=== PATIENT | male | born 1940 | race Caucasian/White ===

== ENCOUNTER 2018-10-28 14:50 | Emergency (ER) | payer OTHER ==
[~2018-10-28] VITALS: Ht 154.9 cm; Wt 50.9 kg
[~2018-10-28 14:50] MED LIST: ALBU8.5H8 IH; MOME13HF2 IH; TAMS0.4C32 PO
[2018-10-28] MEDS ORDERED: ACETAMINOPHEN 500 MG TABLET PO ONE (17:00)
[2018-10-28 17:30] VITALS: BP 129/72
== END 2018-10-28 18:25 | disposition home or self-care (01) ==
LOC: EMS 14:52
DX: T83.098A Other mechanical complication of other urinary catheter, initial encounter (principal); J45.909 Unspecified asthma, uncomplicated; K21.9 Gastro-esophageal reflux disease without esophagitis; F17.210 Nicotine dependence, cigarettes, uncomplicated; F11.90 Opioid use, unspecified, uncomplicated
CPT/HCPCS: 51702

== ENCOUNTER 2018-10-29 17:48 | Emergency (ER) | payer OTHER ==
[~2018-10-29] VITALS: Ht 172.7 cm; Wt 77.3 kg
[2018-10-29 19:32] LABS: APPEARANCE,URINE TURBID (CLEAR); BILIRUBIN,URINE NEGATIVE (NEGATIVE); GLUCOSE, URINE (UA) NEGATIVE (NEGATIVE); KETONES,URINE NEGATIVE (NEGATIVE); LEUKOCYTE ESTERASE ,URINE MODERATE (NEGATIVE); NITRATE,URINE POSITIVE (NEGATIVE); OCCULT BLOOD,URINE LARGE (NEGATIVE); PH,URINE 5.5 (5.0-8.0); PROTEIN,URINE SEE CONFIRM (NEGATIVE)
[2018-10-29 19:45] LABS: SULFOSALICYLIC ACID,URINE 3+ (Negative)
[2018-10-29 19:49] LABS: BACTERIA,URINE Few /HPF (None Seen); SQUAMOUS EPITHELIAL CELL,UR Few /LPF (None Seen); WBC,URINE 51-100 /HPF (0-5)
[2018-10-29 20:39] VITALS: BP 111/66
== END 2018-10-29 20:46 | disposition home or self-care (01) ==
LOC: EMS 17:55
DX: T83.031A Leakage of indwelling urethral catheter, initial encounter (principal); N39.0 Urinary tract infection, site not specified; J45.909 Unspecified asthma, uncomplicated; K21.9 Gastro-esophageal reflux disease without esophagitis; F10.20 Alcohol dependence, uncomplicated; F17.210 Nicotine dependence, cigarettes, uncomplicated; F15.10 Other stimulant abuse, uncomplicated; F11.90 Opioid use, unspecified, uncomplicated; Z79.899 Other long term (current) drug therapy; Y73.2 Prosthetic and other implants, materials and accessory gastroenterology and urology devices associated with adverse incidents
CPT/HCPCS: 51702; 87086

== ENCOUNTER 2019-05-31 22:11 | Inpatient (IN) | payer MEDICAID, OTHER ==
[~2019-05-31] VITALS: Ht 165.1 cm; Wt 51.3 kg
[~2019-05-31 22:11] MED LIST changes: +TAMS-13 PO; -TAMS0.4C32 PO
[2019-05-31] MEDS ORDERED: TAMSULOSIN HCL 0.4 MG CAPSULE PO ONE (23:00)
[2019-05-31 23:24] LABS: BASOPHILS % (AUTO) 0.8 % (0.0-2.0); EOSINOPHILS % (AUTO) 0.9 % (1.0-6.0); HEMATOCRIT 40.9 % (41-53); HEMOGLOBIN 12.5 g/dL (13.5-17.5); LYMPHOCYTES # (AUTO) 2.4 K/uL (1.0-4.8); MEAN CORPUSCULAR HEMOGLOBIN 22.7 pg (26.0-34.0); MEAN CORPUSCULAR HGB CONC 30.6 G/dL (31.0-37.0); MEAN CORPUSCULAR VOLUME 74 fL (80-100); MONOCYTES # (AUTO) 1.6 K/uL (0.1-1.0); MONOCYTES % (AUTO) 9.5 % (2.0-9.0); NEUTROPHILS # (AUTO) 12.7 K/uL (1.8-7.7); NEUTROPHILS % (AUTO) 74.8 % (40.0-70.0); PLATELET COUNT (AUTO) 312 K/uL (150-450); RED BLOOD CELL COUNT(AUTO) 5.52 MIL/uL (4.50-5.90); RED CELL DISTRIBUTION WIDTH 21.4 % (11.5-14.5)
[2019-05-31 23:37] LABS: PROTHROMBIN TIME 10.2 SEC (9.4-11.6)
[2019-05-31 23:50] LABS: ANION GAP 6 mmol/L (8-16); CALCIUM, TOTAL 9.1 mg/dL (8.8-10.5); CARBON DIOXIDE 31 mmol/L (22-29); CHLORIDE 99 mmol/L (98-107); CREATININE 0.77 mg/dL (0.60-1.30); GLOMERULAR FILTR. RATE CALC > 60 mL/min (>60); GLUCOSE,RANDOM 97 mg/dL (70-110); POTASSIUM 5.1 mmol/L (3.5-5.1); SODIUM SERUM 136 mmol/L (136-145); UREA NITROGEN, BLOOD 21 mg/dL (7-18)
[2019-05-31 23:56] LABS: ALANINE AMINOTRANSFERASE 17 U/L (12-78); ALBUMIN 3.1 g/dL (3.4-5.0); ALKALINE PHOSPHATASE 77 U/L (46-116); ASPARTATE AMINOTRANSFERASE 22 U/L (15-37); BILIRUBIN,TOTAL 0.3 mg/dL (0.1-1.0); CREATINE KINASE, TOTAL ONLY 47 U/L (39-308); TOTAL PROTEIN, SERUM 7.1 g/dL (6.4-8.2)
[2019-06-01] MEDS ORDERED: SODIUM CHLORIDE 0.9% 100 ML ONE (00:28)
[2019-06-01] MEDS ORDERED: IOVERSOL 350 MG/ML 100 ML VIAL ONE (00:28)
[2019-06-01] MEDS ORDERED: MethylPREDNISolone SOD SUCC 125 MG/2 ML VIAL IVP ONE ×2 (02:30→07:00)
[2019-06-01] MEDS ORDERED: ALBUTEROL SULFATE 5 MG/ML 20 ML NEB SOLN [BULK] NEB ONE (02:30)
[2019-06-01] MEDS ORDERED: AZITHROMYCIN 500 MG/NS 250 ML IV ONE (02:30)
[2019-06-01] MEDS ORDERED: ACETAMINOPHEN 325 MG TABLET PO PRN ×2 (03:00→11:00)
[2019-06-01] MEDS ORDERED: 0.9% SODIUM CHLORIDE 10 ML SYRINGE IVP PRN ×2 (03:00→07:00)
[2019-06-01] MEDS ORDERED: 0.9% SODIUM CHLORIDE 5 ML NEB SOLUTION NEB ONE (04:05)
[2019-06-01] MEDS: AZITHROMYCIN 500 MG/NS 250 ML IV SCH (07:00)
[2019-06-01] MEDS ORDERED: ZOLPIDEM TARTRATE 5 MG TABLET PO PRN (07:00)
[2019-06-01] MEDS ORDERED: IPRATROPIUM BROMIDE 0.5 MG/2.5 ML NEB SOLUTION NEB PRN (07:00)
[2019-06-01] MEDS ORDERED: ALBUTEROL SULFATE 2.5 MG/0.5 ML NEB SOLUTION NEB PRN (07:00)
[2019-06-01] MEDS ORDERED: ONDANSETRON HCL 4 MG/2 ML VIAL IVP PRN (07:00)
[2019-06-01] MEDS: ALBUTEROL SULFATE 2.5 MG/0.5 ML NEB SOLUTION NEB SCH ×2 (08:00→14:21)
[2019-06-01] MEDS: IPRATROPIUM BROMIDE 0.5 MG/2.5 ML NEB SOLUTION NEB SCH ×2 (08:00→14:21)
[2019-06-01] MEDS: CefTRIAXone 1 GM/DEXTROSE 50 ML IV SCH (08:18)
[2019-06-01] MEDS: TAMSULOSIN HCL 0.4 MG CAPSULE PO SCH (08:19)
[2019-06-01] MEDS: DOCUSATE SODIUM 100 MG CAPSULE PO SCH ×2 (08:20→20:10)
[2019-06-01] MEDS: PANTOPRAZOLE SODIUM 40 MG DR TABLET PO SCH (08:20)
[2019-06-01 11:41] LABS: BASOPHILS % (AUTO) 0.6 % (0.0-2.0); EOSINOPHILS % (AUTO) 0 % (1.0-6.0); HEMATOCRIT 36.3 % (41-53); HEMOGLOBIN 11.2 g/dL (13.5-17.5); LYMPHOCYTES # (AUTO) 0.8 K/uL (1.0-4.8); LYMPHOCYTES % (AUTO) 7.9 % (22.0-44.0); MEAN CORPUSCULAR HEMOGLOBIN 22.8 pg (26.0-34.0); MEAN CORPUSCULAR VOLUME 74 fL (80-100); MONOCYTES # (AUTO) 0.1 K/uL (0.1-1.0); MONOCYTES % (AUTO) 1.1 % (2.0-9.0); NEUTROPHILS % (AUTO) 90.4 % (40.0-70.0); PLATELET COUNT (AUTO) 291 K/uL (150-450); RED BLOOD CELL COUNT(AUTO) 4.92 MIL/uL (4.50-5.90); RED CELL DISTRIBUTION WIDTH 20.9 % (11.5-14.5)
[2019-06-01 12:09] LABS: ANION GAP 8 mmol/L (8-16); CALCIUM, TOTAL 8.4 mg/dL (8.8-10.5); CARBON DIOXIDE 27 mmol/L (22-29); CHLORIDE 100 mmol/L (98-107); CREATININE 0.68 mg/dL (0.60-1.30); GLUCOSE,RANDOM 157 mg/dL (70-110); POTASSIUM 4.7 mmol/L (3.5-5.1); SODIUM SERUM 135 mmol/L (136-145); UREA NITROGEN, BLOOD 18 mg/dL (7-18)
[2019-06-01 12:11] LABS: GLOMERULAR FILTR. RATE CALC > 60 mL/min (>60)
[2019-06-01 12:12] LABS: % IRON SATURATION 7.8 % (30-44); IRON, SERUM 26 mcg/dL (50-175); TOTAL IRON BINDING CAPACITY 332 mcg/dL (250-450)
[2019-06-01 12:38] LABS: FERRITIN 36 ng/mL (26-388)
[2019-06-01 16:23] VITALS: BP 112/63
[2019-06-01] MEDS ORDERED: PNEUMOCOCCAL VACCINE POLYVALENT 0.5 ML VIAL [PPSV23] IM ONE (17:15)
[2019-06-01 20:03] VITALS: BP 107/60
[2019-06-01] MEDS: MethylPREDNISolone SOD SUCC 40 MG/ML VIAL IVP SCH (20:10)
[2019-06-02] VITALS (7 sets, daily range): BP systolic 102–115; BP diastolic 52–63
[2019-06-02] MEDS: IPRATROPIUM BROMIDE 0.5 MG/2.5 ML NEB SOLUTION NEB SCH ×4 (02:25→19:09)
[2019-06-02] MEDS: ALBUTEROL SULFATE 2.5 MG/0.5 ML NEB SOLUTION NEB SCH ×4 (02:25→19:09)
[2019-06-02] MEDS ORDERED: SODIUM CHLORIDE 0.9% 100 ML ONE (04:48)
[2019-06-02] MEDS: AZITHROMYCIN 500 MG/NS 250 ML IV SCH (05:07)
[2019-06-02 06:48] LABS: BASOPHILS % (AUTO) 0.3 % (0.0-2.0); EOSINOPHILS % (AUTO) 0 % (1.0-6.0); HEMATOCRIT 32.8 % (41-53); HEMOGLOBIN 10.1 g/dL (13.5-17.5); LYMPHOCYTES # (AUTO) 1.4 K/uL (1.0-4.8); LYMPHOCYTES % (AUTO) 8.5 % (22.0-44.0); MEAN CORPUSCULAR HEMOGLOBIN 22.6 pg (26.0-34.0); MEAN CORPUSCULAR HGB CONC 30.6 G/dL (31.0-37.0); MEAN CORPUSCULAR VOLUME 74 fL (80-100); MONOCYTES # (AUTO) 0.7 K/uL (0.1-1.0); MONOCYTES % (AUTO) 4.4 % (2.0-9.0); NEUTROPHILS # (AUTO) 14.7 K/uL (1.8-7.7); PLATELET COUNT (AUTO) 318 K/uL (150-450); RED BLOOD CELL COUNT(AUTO) 4.46 MIL/uL (4.50-5.90); RED CELL DISTRIBUTION WIDTH 21.6 % (11.5-14.5)
[2019-06-02 07:00] LABS: NEUTROPHILS % (AUTO) 86.8 % (40.0-70.0)
[2019-06-02 07:13] LABS: ALANINE AMINOTRANSFERASE 16 U/L (12-78); ALBUMIN 2.6 g/dL (3.4-5.0); ALKALINE PHOSPHATASE 61 U/L (46-116); ANION GAP 4 mmol/L (8-16); ASPARTATE AMINOTRANSFERASE 13 U/L (15-37); BILIRUBIN,TOTAL 0.3 mg/dL (0.1-1.0); CALCIUM, TOTAL 8.2 mg/dL (8.8-10.5); CARBON DIOXIDE 29 mmol/L (22-29); CHLORIDE 101 mmol/L (98-107); CREATININE 0.63 mg/dL (0.60-1.30); GLUCOSE,RANDOM 119 mg/dL (70-110); POTASSIUM 4.6 mmol/L (3.5-5.1); SODIUM SERUM 134 mmol/L (136-145); TOTAL PROTEIN, SERUM 6.1 g/dL (6.4-8.2); UREA NITROGEN, BLOOD 18 mg/dL (7-18)
[2019-06-02 07:16] LABS: GLOMERULAR FILTR. RATE CALC > 60 mL/min (>60)
[2019-06-02] MEDS: DOCUSATE SODIUM 100 MG CAPSULE PO SCH ×2 (08:50→20:01)
[2019-06-02] MEDS: PANTOPRAZOLE SODIUM 40 MG DR TABLET PO SCH (08:50)
[2019-06-02] MEDS: TAMSULOSIN HCL 0.4 MG CAPSULE PO SCH (08:50)
[2019-06-02] MEDS: MethylPREDNISolone SOD SUCC 40 MG/ML VIAL IVP SCH ×2 (08:50→20:02)
[2019-06-02] MEDS: CefTRIAXone 1 GM/DEXTROSE 50 ML IV SCH (09:28)
[2019-06-03] MEDS: ALBUTEROL SULFATE 2.5 MG/0.5 ML NEB SOLUTION NEB SCH ×4 (01:53→19:21)
[2019-06-03] MEDS: IPRATROPIUM BROMIDE 0.5 MG/2.5 ML NEB SOLUTION NEB SCH ×4 (01:53→19:21)
[2019-06-03 04:41] VITALS: BP 102/52
[2019-06-03] MEDS: AZITHROMYCIN 500 MG/NS 250 ML IV SCH (05:11)
[2019-06-03 06:34] LABS: EOSINOPHILS % (AUTO) 0 % (1.0-6.0); HEMATOCRIT 30.6 % (41-53); HEMOGLOBIN 9.6 g/dL (13.5-17.5); LYMPHOCYTES # (AUTO) 1.2 K/uL (1.0-4.8); LYMPHOCYTES % (AUTO) 6.9 % (22.0-44.0); MEAN CORPUSCULAR HEMOGLOBIN 23.2 pg (26.0-34.0); MEAN CORPUSCULAR HGB CONC 31.3 G/dL (31.0-37.0); MEAN CORPUSCULAR VOLUME 74 fL (80-100); MONOCYTES # (AUTO) 0.7 K/uL (0.1-1.0); MONOCYTES % (AUTO) 4.3 % (2.0-9.0); NEUTROPHILS # (AUTO) 15.4 K/uL (1.8-7.7); PLATELET COUNT (AUTO) 309 K/uL (150-450); RED BLOOD CELL COUNT(AUTO) 4.13 MIL/uL (4.50-5.90); RED CELL DISTRIBUTION WIDTH 20.9 % (11.5-14.5)
[2019-06-03 06:43] LABS: NEUTROPHILS % (AUTO) 88.8 % (40.0-70.0)
[2019-06-03 06:57] LABS: ANION GAP 6 mmol/L (8-16); CALCIUM, TOTAL 8.4 mg/dL (8.8-10.5); CARBON DIOXIDE 27 mmol/L (22-29); CHLORIDE 102 mmol/L (98-107); CREATININE 0.65 mg/dL (0.60-1.30); GLOMERULAR FILTR. RATE CALC > 60 mL/min (>60); GLUCOSE,RANDOM 116 mg/dL (70-110); POTASSIUM 4.5 mmol/L (3.5-5.1); SODIUM SERUM 135 mmol/L (136-145); UREA NITROGEN, BLOOD 18 mg/dL (7-18)
[2019-06-03] MEDS: CefTRIAXone 1 GM/DEXTROSE 50 ML IV SCH (07:47)
[2019-06-03] MEDS: DOCUSATE SODIUM 100 MG CAPSULE PO SCH ×2 (07:48→19:45)
[2019-06-03] MEDS: MethylPREDNISolone SOD SUCC 40 MG/ML VIAL IVP SCH (07:48)
[2019-06-03] MEDS: PANTOPRAZOLE SODIUM 40 MG DR TABLET PO SCH (07:48)
[2019-06-03] MEDS: TAMSULOSIN HCL 0.4 MG CAPSULE PO SCH (07:48)
[2019-06-03 08:53] VITALS: BP 105/56
[2019-06-03 12:05] VITALS: BP 110/54
[2019-06-03 16:00] VITALS: BP 130/64
[2019-06-03 20:04] VITALS: BP 128/64
[2019-06-03 23:57] VITALS: BP 137/73
[2019-06-04] MEDS: IPRATROPIUM BROMIDE 0.5 MG/2.5 ML NEB SOLUTION NEB SCH ×4 (02:00→19:58)
[2019-06-04] MEDS: ALBUTEROL SULFATE 2.5 MG/0.5 ML NEB SOLUTION NEB SCH ×4 (02:00→19:58)
[2019-06-04] MEDS ORDERED: SODIUM CHLORIDE 0.9% 100 ML ONE (04:02)
[2019-06-04] MEDS: AZITHROMYCIN 500 MG/NS 250 ML IV SCH (04:07)
[2019-06-04 04:42] VITALS: BP 98/51
[2019-06-04 08:00] VITALS: BP 104/56
[2019-06-04] MEDS: MethylPREDNISolone SOD SUCC 40 MG/ML VIAL IVP SCH (08:54)
[2019-06-04] MEDS: CefTRIAXone 1 GM/DEXTROSE 50 ML IV SCH (08:54)
[2019-06-04] MEDS: TAMSULOSIN HCL 0.4 MG CAPSULE PO SCH (08:54)
[2019-06-04] MEDS: DOCUSATE SODIUM 100 MG CAPSULE PO SCH ×2 (08:54→21:00)
[2019-06-04] MEDS: PANTOPRAZOLE SODIUM 40 MG DR TABLET PO SCH (08:54)
[2019-06-04 11:23] LABS: BASOPHILS % (AUTO) 0.6 % (0.0-2.0); EOSINOPHILS % (AUTO) 0.3 % (1.0-6.0); HEMATOCRIT 35.2 % (41-53); HEMOGLOBIN 10.7 g/dL (13.5-17.5); LYMPHOCYTES # (AUTO) 1.2 K/uL (1.0-4.8); LYMPHOCYTES % (AUTO) 7.6 % (22.0-44.0); MEAN CORPUSCULAR HEMOGLOBIN 22.6 pg (26.0-34.0); MEAN CORPUSCULAR HGB CONC 30.4 G/dL (31.0-37.0); MEAN CORPUSCULAR VOLUME 74 fL (80-100); MONOCYTES # (AUTO) 0.7 K/uL (0.1-1.0); MONOCYTES % (AUTO) 4.5 % (2.0-9.0); NEUTROPHILS # (AUTO) 13.7 K/uL (1.8-7.7); PLATELET COUNT (AUTO) 351 K/uL (150-450); RED BLOOD CELL COUNT(AUTO) 4.75 MIL/uL (4.50-5.90); RED CELL DISTRIBUTION WIDTH 21.1 % (11.5-14.5)
[2019-06-04 11:32] LABS: ANION GAP 3 mmol/L (8-16); CALCIUM, TOTAL 8.3 mg/dL (8.8-10.5); CARBON DIOXIDE 32 mmol/L (22-29); CHLORIDE 100 mmol/L (98-107); CREATININE 0.57 mg/dL (0.60-1.30); GLOMERULAR FILTR. RATE CALC > 60 mL/min (>60); GLUCOSE,RANDOM 90 mg/dL (70-110); POTASSIUM 4.4 mmol/L (3.5-5.1); SODIUM SERUM 135 mmol/L (136-145); UREA NITROGEN, BLOOD 14 mg/dL (7-18)
[2019-06-04 12:00] VITALS: BP 106/58
[2019-06-04 16:00] VITALS: BP 115/64
[2019-06-04 20:32] VITALS: BP 112/73
[2019-06-04 23:20] VITALS: BP 104/53
[2019-06-05] MEDS: IPRATROPIUM BROMIDE 0.5 MG/2.5 ML NEB SOLUTION NEB SCH ×4 (02:11→20:05)
[2019-06-05] MEDS: ALBUTEROL SULFATE 2.5 MG/0.5 ML NEB SOLUTION NEB SCH ×4 (02:11→20:05)
[2019-06-05] MEDS: AZITHROMYCIN 500 MG/NS 250 ML IV SCH (04:56)
[2019-06-05 05:33] VITALS: BP 110/55
[2019-06-05 06:57] LABS: BASOPHILS % (AUTO) 0.1 % (0.0-2.0); EOSINOPHILS % (AUTO) 0.6 % (1.0-6.0); HEMATOCRIT 31.9 % (41-53); HEMOGLOBIN 9.9 g/dL (13.5-17.5); LYMPHOCYTES # (AUTO) 3.1 K/uL (1.0-4.8); LYMPHOCYTES % (AUTO) 19.4 % (22.0-44.0); MEAN CORPUSCULAR HEMOGLOBIN 22.9 pg (26.0-34.0); MEAN CORPUSCULAR VOLUME 74 fL (80-100); MONOCYTES # (AUTO) 1.4 K/uL (0.1-1.0); MONOCYTES % (AUTO) 8.8 % (2.0-9.0); NEUTROPHILS # (AUTO) 11.5 K/uL (1.8-7.7); NEUTROPHILS % (AUTO) 71.1 % (40.0-70.0); PLATELET COUNT (AUTO) 366 K/uL (150-450); RED BLOOD CELL COUNT(AUTO) 4.32 MIL/uL (4.50-5.90); RED CELL DISTRIBUTION WIDTH 21.1 % (11.5-14.5)
[2019-06-05 07:06] LABS: ANION GAP 4 mmol/L (8-16); CALCIUM, TOTAL 8.2 mg/dL (8.8-10.5); CARBON DIOXIDE 32 mmol/L (22-29); CHLORIDE 101 mmol/L (98-107); CREATININE 0.59 mg/dL (0.60-1.30); GLUCOSE,RANDOM 81 mg/dL (70-110); POTASSIUM 3.9 mmol/L (3.5-5.1); SODIUM SERUM 137 mmol/L (136-145); UREA NITROGEN, BLOOD 23 mg/dL (7-18)
[2019-06-05 07:20] LABS: GLOMERULAR FILTR. RATE CALC > 60 mL/min (>60)
[2019-06-05 07:50] VITALS: BP 102/60
[2019-06-05] MEDS: PANTOPRAZOLE SODIUM 40 MG DR TABLET PO SCH (08:59)
[2019-06-05] MEDS: MethylPREDNISolone SOD SUCC 40 MG/ML VIAL IVP SCH (08:59)
[2019-06-05] MEDS: TAMSULOSIN HCL 0.4 MG CAPSULE PO SCH (08:59)
[2019-06-05] MEDS: CefTRIAXone 1 GM/DEXTROSE 50 ML IV SCH (08:59)
[2019-06-05] MEDS: DOCUSATE SODIUM 100 MG CAPSULE PO SCH ×2 (08:59→20:26)
[2019-06-05 11:50] VITALS: BP 110/60
[2019-06-05 16:12] VITALS: BP 119/61
[2019-06-05 20:03] VITALS: BP 102/63
[2019-06-06 00:19] VITALS: BP 106/62
[2019-06-06] MEDS: ALBUTEROL SULFATE 2.5 MG/0.5 ML NEB SOLUTION NEB SCH ×4 (01:22→20:33)
[2019-06-06] MEDS: IPRATROPIUM BROMIDE 0.5 MG/2.5 ML NEB SOLUTION NEB SCH ×4 (01:22→20:33)
[2019-06-06 05:04] VITALS: BP 109/61
[2019-06-06] MEDS: AZITHROMYCIN 500 MG/NS 250 ML IV SCH (05:10)
[2019-06-06] MEDS ORDERED: SODIUM CHLORIDE 0.9% 100 ML ONE (05:18)
[2019-06-06 06:29] LABS: BASOPHILS % (AUTO) 0.6 % (0.0-2.0); EOSINOPHILS % (AUTO) 0.7 % (1.0-6.0); HEMATOCRIT 32.6 % (41-53); LYMPHOCYTES # (AUTO) 2.7 K/uL (1.0-4.8); LYMPHOCYTES % (AUTO) 14.6 % (22.0-44.0); MEAN CORPUSCULAR HEMOGLOBIN 22.7 pg (26.0-34.0); MEAN CORPUSCULAR HGB CONC 30.8 G/dL (31.0-37.0); MEAN CORPUSCULAR VOLUME 74 fL (80-100); MONOCYTES # (AUTO) 1.5 K/uL (0.1-1.0); MONOCYTES % (AUTO) 7.8 % (2.0-9.0); NEUTROPHILS # (AUTO) 14.3 K/uL (1.8-7.7); NEUTROPHILS % (AUTO) 76.3 % (40.0-70.0); PLATELET COUNT (AUTO) 373 K/uL (150-450); RED BLOOD CELL COUNT(AUTO) 4.41 MIL/uL (4.50-5.90); RED CELL DISTRIBUTION WIDTH 21.6 % (11.5-14.5)
[2019-06-06 06:37] LABS: ANION GAP 4 mmol/L (8-16); CALCIUM, TOTAL 8.3 mg/dL (8.8-10.5); CARBON DIOXIDE 32 mmol/L (22-29); CHLORIDE 101 mmol/L (98-107); CREATININE 0.63 mg/dL (0.60-1.30); GLUCOSE,RANDOM 84 mg/dL (70-110); POTASSIUM 4.3 mmol/L (3.5-5.1); SODIUM SERUM 137 mmol/L (136-145); UREA NITROGEN, BLOOD 20 mg/dL (7-18)
[2019-06-06 06:42] LABS: GLOMERULAR FILTR. RATE CALC > 60 mL/min (>60)
[2019-06-06 07:46] VITALS: BP 100/60
[2019-06-06] MEDS: CefTRIAXone 1 GM/DEXTROSE 50 ML IV SCH (08:16)
[2019-06-06] MEDS: TAMSULOSIN HCL 0.4 MG CAPSULE PO SCH (08:16)
[2019-06-06] MEDS: MethylPREDNISolone SOD SUCC 40 MG/ML VIAL IVP SCH (08:16)
[2019-06-06] MEDS: PANTOPRAZOLE SODIUM 40 MG DR TABLET PO SCH (08:16)
[2019-06-06] MEDS: DOCUSATE SODIUM 100 MG CAPSULE PO SCH ×2 (08:17→20:34)
[2019-06-06 11:26] VITALS: BP 104/58
[2019-06-06 16:31] VITALS: BP 101/50
[2019-06-06 20:30] VITALS: BP 98/54
[2019-06-07 00:23] VITALS: BP 110/60
[2019-06-07] MEDS: IPRATROPIUM BROMIDE 0.5 MG/2.5 ML NEB SOLUTION NEB SCH ×4 (02:07→21:14)
[2019-06-07] MEDS: ALBUTEROL SULFATE 2.5 MG/0.5 ML NEB SOLUTION NEB SCH ×4 (02:07→21:14)
[2019-06-07 03:30] VITALS: BP 122/60
[2019-06-07] MEDS: AZITHROMYCIN 500 MG/NS 250 ML IV SCH (06:25)
[2019-06-07 07:09] LABS: BASOPHILS % (AUTO) 0.5 % (0.0-2.0); EOSINOPHILS % (AUTO) 0.4 % (1.0-6.0); HEMATOCRIT 32.9 % (41-53); HEMOGLOBIN 10.3 g/dL (13.5-17.5); LYMPHOCYTES # (AUTO) 2.7 K/uL (1.0-4.8); MEAN CORPUSCULAR HEMOGLOBIN 23.2 pg (26.0-34.0); MEAN CORPUSCULAR HGB CONC 31.2 G/dL (31.0-37.0); MEAN CORPUSCULAR VOLUME 74 fL (80-100); MONOCYTES # (AUTO) 1.1 K/uL (0.1-1.0); MONOCYTES % (AUTO) 5.4 % (2.0-9.0); NEUTROPHILS # (AUTO) 16.5 K/uL (1.8-7.7); NEUTROPHILS % (AUTO) 80.7 % (40.0-70.0); PLATELET COUNT (AUTO) 382 K/uL (150-450); RED BLOOD CELL COUNT(AUTO) 4.44 MIL/uL (4.50-5.90)
[2019-06-07 07:45] LABS: ANION GAP 3 mmol/L (8-16); CALCIUM, TOTAL 8.2 mg/dL (8.8-10.5); CARBON DIOXIDE 32 mmol/L (22-29); CHLORIDE 100 mmol/L (98-107); CREATININE 0.58 mg/dL (0.60-1.30); GLUCOSE,RANDOM 89 mg/dL (70-110); POTASSIUM 4.4 mmol/L (3.5-5.1); SODIUM SERUM 135 mmol/L (136-145); UREA NITROGEN, BLOOD 19 mg/dL (7-18)
[2019-06-07 07:48] LABS: GLOMERULAR FILTR. RATE CALC > 60 mL/min (>60)
[2019-06-07] MEDS: CefTRIAXone 1 GM/DEXTROSE 50 ML IV SCH (08:11)
[2019-06-07] MEDS: TAMSULOSIN HCL 0.4 MG CAPSULE PO SCH (08:11)
[2019-06-07] MEDS: PANTOPRAZOLE SODIUM 40 MG DR TABLET PO SCH (08:11)
[2019-06-07] MEDS: MethylPREDNISolone SOD SUCC 40 MG/ML VIAL IVP SCH (08:11)
[2019-06-07] MEDS: DOCUSATE SODIUM 100 MG CAPSULE PO SCH ×2 (08:12→21:28)
[2019-06-07 11:43] VITALS: BP 108/58
[2019-06-07 16:54] VITALS: BP 107/54
[2019-06-07 19:30] VITALS: BP 93/50
[2019-06-07] MEDS ORDERED: DEXTROSE 5%-0.45% SODIUM CHL 1,000 ML IV PRN (23:55)
[2019-06-08] VITALS (7 sets, daily range): BP systolic 102–118; BP diastolic 50–74
[2019-06-08] MEDS: ALBUTEROL SULFATE 2.5 MG/0.5 ML NEB SOLUTION NEB SCH ×4 (02:00→19:15)
[2019-06-08] MEDS: IPRATROPIUM BROMIDE 0.5 MG/2.5 ML NEB SOLUTION NEB SCH ×4 (02:00→19:15)
[2019-06-08] MEDS: AZITHROMYCIN 500 MG/NS 250 ML IV SCH (05:42)
[2019-06-08] MEDS: CefTRIAXone 1 GM/DEXTROSE 50 ML IV SCH (09:48)
[2019-06-08] MEDS ORDERED: SODIUM CHLORIDE 0.9% 1,000 ML IV ONE ×2 (11:03→12:30)
[2019-06-08] MEDS: TAMSULOSIN HCL 0.4 MG CAPSULE PO SCH (15:50)
[2019-06-08] MEDS: PredniSONE 20 MG TABLET PO SCH (15:50)
[2019-06-08] MEDS: PANTOPRAZOLE SODIUM 40 MG DR TABLET PO SCH (15:50)
[2019-06-08] MEDS: DOCUSATE SODIUM 100 MG CAPSULE PO SCH ×2 (15:51→20:17)
[2019-06-09] MEDS: ALBUTEROL SULFATE 2.5 MG/0.5 ML NEB SOLUTION NEB SCH ×4 (01:11→21:00)
[2019-06-09] MEDS: IPRATROPIUM BROMIDE 0.5 MG/2.5 ML NEB SOLUTION NEB SCH ×4 (01:12→21:00)
[2019-06-09] MEDS: AZITHROMYCIN 500 MG/NS 250 ML IV SCH (04:24)
[2019-06-09 05:06] VITALS: BP 106/59
[2019-06-09 07:18] VITALS: BP 99/57
[2019-06-09] MEDS: CefTRIAXone 1 GM/DEXTROSE 50 ML IV SCH (08:14)
[2019-06-09] MEDS: PANTOPRAZOLE SODIUM 40 MG DR TABLET PO SCH (08:15)
[2019-06-09] MEDS: DOCUSATE SODIUM 100 MG CAPSULE PO SCH ×2 (08:15→21:55)
[2019-06-09] MEDS: PredniSONE 20 MG TABLET PO SCH (08:15)
[2019-06-09] MEDS: TAMSULOSIN HCL 0.4 MG CAPSULE PO SCH (08:15)
[2019-06-09] MEDS ORDERED: PRED10TA3 PO (10:42)
[2019-06-09] MEDS ORDERED: PRED5SOL PO (10:42)
[2019-06-09] MEDS ORDERED: PRED20TA3 PO (10:42)
[2019-06-09] MEDS ORDERED: OMEP20 PO (10:42)
[2019-06-09] MEDS ORDERED: CIP250 PO (10:42)
[2019-06-09 11:21] VITALS: BP 105/65
[2019-06-09 15:40] VITALS: BP 111/59
[2019-06-09 19:22] VITALS: BP 101/57
[2019-06-10 00:12] VITALS: BP 106/56
[2019-06-10] MEDS: IPRATROPIUM BROMIDE 0.5 MG/2.5 ML NEB SOLUTION NEB SCH ×4 (01:58→20:16)
[2019-06-10] MEDS: ALBUTEROL SULFATE 2.5 MG/0.5 ML NEB SOLUTION NEB SCH ×4 (01:58→20:16)
[2019-06-10 03:45] VITALS: BP 112/64
[2019-06-10] MEDS: AZITHROMYCIN 500 MG/NS 250 ML IV SCH (05:09)
[2019-06-10] MEDS: CefTRIAXone 1 GM/DEXTROSE 50 ML IV SCH (07:41)
[2019-06-10 08:00] VITALS: BP 105/54
[2019-06-10] MEDS: TAMSULOSIN HCL 0.4 MG CAPSULE PO SCH (08:08)
[2019-06-10] MEDS: DOCUSATE SODIUM 100 MG CAPSULE PO SCH ×2 (08:08→20:39)
[2019-06-10] MEDS: PANTOPRAZOLE SODIUM 40 MG DR TABLET PO SCH (08:08)
[2019-06-10] MEDS: PredniSONE 20 MG TABLET PO SCH (08:09)
[2019-06-10 12:35] VITALS: BP 109/61
[2019-06-10 15:05] VITALS: BP 113/55
[2019-06-10 20:02] VITALS: BP 112/57
[2019-06-11] VITALS (7 sets, daily range): BP systolic 98–122; BP diastolic 45–66
[2019-06-11] MEDS: ALBUTEROL SULFATE 2.5 MG/0.5 ML NEB SOLUTION NEB SCH ×4 (02:12→19:57)
[2019-06-11] MEDS: IPRATROPIUM BROMIDE 0.5 MG/2.5 ML NEB SOLUTION NEB SCH ×4 (02:12→19:57)
[2019-06-11] MEDS: AZITHROMYCIN 500 MG/NS 250 ML IV SCH (04:19)
[2019-06-11] MEDS: CefTRIAXone 1 GM/DEXTROSE 50 ML IV SCH (08:10)
[2019-06-11] MEDS: DOCUSATE SODIUM 100 MG CAPSULE PO SCH ×2 (08:10→20:27)
[2019-06-11] MEDS: PANTOPRAZOLE SODIUM 40 MG DR TABLET PO SCH (08:10)
[2019-06-11] MEDS: TAMSULOSIN HCL 0.4 MG CAPSULE PO SCH (08:10)
[2019-06-11] MEDS: PredniSONE 20 MG TABLET PO SCH (08:10)
[2019-06-12] MEDS: ALBUTEROL SULFATE 2.5 MG/0.5 ML NEB SOLUTION NEB SCH ×4 (02:00→20:14)
[2019-06-12] MEDS: IPRATROPIUM BROMIDE 0.5 MG/2.5 ML NEB SOLUTION NEB SCH ×4 (02:00→20:14)
[2019-06-12] MEDS: AZITHROMYCIN 500 MG/NS 250 ML IV SCH (04:47)
[2019-06-12 05:02] VITALS: BP 117/62
[2019-06-12 07:48] VITALS: BP 112/61
[2019-06-12] MEDS: PANTOPRAZOLE SODIUM 40 MG DR TABLET PO SCH (09:45)
[2019-06-12] MEDS: DOCUSATE SODIUM 100 MG CAPSULE PO SCH ×2 (09:45→20:35)
[2019-06-12] MEDS: CefTRIAXone 1 GM/DEXTROSE 50 ML IV SCH (09:45)
[2019-06-12] MEDS: PredniSONE 20 MG TABLET PO SCH (09:45)
[2019-06-12] MEDS: TAMSULOSIN HCL 0.4 MG CAPSULE PO SCH (09:45)
[2019-06-12 11:05] VITALS: BP 110/46
[2019-06-12 13:14] VITALS: BP 121/67
[2019-06-12 15:32] VITALS: BP 121/72
[2019-06-12] MEDS ORDERED: ALBUTEROL SULFATE HFA 90 MCG/PUFF 8 GM INHALER IH PRN (19:15)
[2019-06-12 20:35] VITALS: BP 97/57
[2019-06-12] MEDS ORDERED: CIPROFLOXACIN HCL 250 MG TABLET PO SCH (21:00)
[2019-06-13 00:10] VITALS: BP 112/61
[2019-06-13] MEDS: IPRATROPIUM BROMIDE 0.5 MG/2.5 ML NEB SOLUTION NEB SCH ×4 (02:25→20:29)
[2019-06-13] MEDS: ALBUTEROL SULFATE 2.5 MG/0.5 ML NEB SOLUTION NEB SCH ×4 (02:25→20:29)
[2019-06-13] MEDS: AZITHROMYCIN 500 MG/NS 250 ML IV SCH (05:00)
[2019-06-13 05:24] VITALS: BP 112/64
[2019-06-13] MEDS ORDERED: SODIUM CHLORIDE 0.9% 250 ML IV ONE (05:29)
[2019-06-13 07:35] VITALS: BP 107/68
[2019-06-13] MEDS: PANTOPRAZOLE SODIUM 40 MG DR TABLET PO SCH (08:20)
[2019-06-13] MEDS: PredniSONE 20 MG TABLET PO SCH (08:20)
[2019-06-13] MEDS: TAMSULOSIN HCL 0.4 MG CAPSULE PO SCH (08:20)
[2019-06-13] MEDS: DOCUSATE SODIUM 100 MG CAPSULE PO SCH ×2 (08:20→21:20)
[2019-06-13] MEDS: CefTRIAXone 1 GM/DEXTROSE 50 ML IV SCH (08:30)
[2019-06-13] MEDS ORDERED: PredniSONE 20 MG TABLET PO SCH (09:00)
[2019-06-13] MEDS ORDERED: PredniSONE 10 MG TABLET PO SCH ×2 (09:00)
[2019-06-13] MEDS ORDERED: OMEPRAZOLE 20 MG CAPSULE PO SCH (09:00)
[2019-06-13] MEDS ORDERED: PredniSONE 5 MG/5 ML SOLUTION UDCUP PO SCH (09:00)
[2019-06-13 11:05] VITALS: BP 102/58
[2019-06-13 15:10] VITALS: BP 108/57
[2019-06-13 19:41] VITALS: BP 104/59
[2019-06-14 00:54] VITALS: BP 116/67
[2019-06-14] MEDS: IPRATROPIUM BROMIDE 0.5 MG/2.5 ML NEB SOLUTION NEB SCH ×4 (02:13→19:51)
[2019-06-14] MEDS: ALBUTEROL SULFATE 2.5 MG/0.5 ML NEB SOLUTION NEB SCH ×4 (02:13→19:51)
[2019-06-14] MEDS: AZITHROMYCIN 500 MG/NS 250 ML IV SCH (04:44)
[2019-06-14 05:40] VITALS: BP 119/67
[2019-06-14 07:26] VITALS: BP 116/68
[2019-06-14] MEDS: DOCUSATE SODIUM 100 MG CAPSULE PO SCH ×2 (09:46→20:44)
[2019-06-14] MEDS: PredniSONE 20 MG TABLET PO SCH (09:46)
[2019-06-14] MEDS: TAMSULOSIN HCL 0.4 MG CAPSULE PO SCH (09:46)
[2019-06-14] MEDS: PANTOPRAZOLE SODIUM 40 MG DR TABLET PO SCH (09:47)
[2019-06-14] MEDS: CefTRIAXone 1 GM/DEXTROSE 50 ML IV SCH (09:47)
[2019-06-14 11:15] VITALS: BP 100/65
[2019-06-14 15:10] VITALS: BP 106/65
[2019-06-14 20:25] VITALS: BP 100/56
[2019-06-15 00:17] VITALS: BP 109/52
[2019-06-15] MEDS: IPRATROPIUM BROMIDE 0.5 MG/2.5 ML NEB SOLUTION NEB SCH ×3 (02:00→14:00)
[2019-06-15] MEDS: ALBUTEROL SULFATE 2.5 MG/0.5 ML NEB SOLUTION NEB SCH ×3 (02:00→14:00)
[2019-06-15] MEDS: AZITHROMYCIN 500 MG/NS 250 ML IV SCH (04:50)
[2019-06-15 05:10] VITALS: BP 109/61
[2019-06-15 06:00] LABS: BASOPHILS % (AUTO) 1.1 % (0.0-2.0); EOSINOPHILS % (AUTO) 0.3 % (1.0-6.0); HEMATOCRIT 33.6 % (41-53); HEMOGLOBIN 10.4 g/dL (13.5-17.5); LYMPHOCYTES # (AUTO) 2.9 K/uL (1.0-4.8); LYMPHOCYTES % (AUTO) 16.6 % (22.0-44.0); MEAN CORPUSCULAR HEMOGLOBIN 22.8 pg (26.0-34.0); MEAN CORPUSCULAR HGB CONC 30.9 G/dL (31.0-37.0); MEAN CORPUSCULAR VOLUME 74 fL (80-100); MONOCYTES # (AUTO) 1.1 K/uL (0.1-1.0); MONOCYTES % (AUTO) 6.4 % (2.0-9.0); NEUTROPHILS # (AUTO) 13.2 K/uL (1.8-7.7); NEUTROPHILS % (AUTO) 75.6 % (40.0-70.0); PLATELET COUNT (AUTO) 437 K/uL (150-450); RED BLOOD CELL COUNT(AUTO) 4.56 MIL/uL (4.50-5.90); RED CELL DISTRIBUTION WIDTH 20.9 % (11.5-14.5)
[2019-06-15 08:12] VITALS: BP 101/57
[2019-06-15] MEDS: CefTRIAXone 1 GM/DEXTROSE 50 ML IV SCH (08:37)
[2019-06-15] MEDS: DOCUSATE SODIUM 100 MG CAPSULE PO SCH (08:38)
[2019-06-15] MEDS: PredniSONE 20 MG TABLET PO SCH (08:38)
[2019-06-15] MEDS: TAMSULOSIN HCL 0.4 MG CAPSULE PO SCH (08:38)
[2019-06-15] MEDS: PANTOPRAZOLE SODIUM 40 MG DR TABLET PO SCH (08:38)
[2019-06-15] MEDS ORDERED: SODIUM CHLORIDE 0.9% 250 ML IV ONE (08:44)
[2019-06-15 11:43] VITALS: BP 116/57
[2019-06-15 15:14] VITALS: BP 102/54
== END 2019-06-15 20:45 | disposition hospice, home (50) | DRG 191 ==
LOC: EMS 22:13 → AHU 06-01 12:00 → 5S 06-01 12:20 → 6N 06-12 12:15 → 4E 06-12 19:30
PROVIDERS: ADMIT Internal Medicine; ATTEND Internal Medicine
PROC: 3E0234Z Introduction of Serum, Toxoid and Vaccine into Muscle, Percutaneous Approach (ICD-10-PCS; 2019-06-07)
PROC: 0DB48ZX Excision of Esophagogastric Junction, Via Natural or Artificial Opening Endoscopic, Diagnostic (ICD-10-PCS; principal; 2019-06-08 13:30)
DX: J44.1 Chronic obstructive pulmonary disease with (acute) exacerbation (principal); C16.0 Malignant neoplasm of cardia; J40 Bronchitis, not specified as acute or chronic; D50.9 Iron deficiency anemia, unspecified; R13.10 Dysphagia, unspecified; F10.10 Alcohol abuse, uncomplicated; F17.200 Nicotine dependence, unspecified, uncomplicated; K44.9 Diaphragmatic hernia without obstruction or gangrene; K21.9 Gastro-esophageal reflux disease without esophagitis; Z82.5 Family history of asthma and other chronic lower respiratory diseases; Z23 Encounter for immunization; Z59.0 Homelessness
CPT/HCPCS: 71275; 82270; 82728; 83540; 83550; 83605; 83735; 84145; 87040; 87081; 88305; 88312; 88313; 90732; 92610; 93005; 94640; 97116; 97161; 97530; G0378; J0456; J0696; J2920; J2930; J7030; J7050

== ENCOUNTER 2019-06-16 04:41 | Emergency (ER) | payer SELFPAY ==
[~2019-06-16] VITALS: Ht 167.6 cm; Wt 50.0 kg
[~2019-06-16 04:41] MED LIST changes: +CIP250 PO; +OMEP20 PO; +PRED10TA3 PO; +PRED20TA3 PO; +PRED5SOL PO
[2019-06-16 05:45] LABS: APPEARANCE,URINE CLEAR (CLEAR); BILIRUBIN,URINE NEGATIVE (NEGATIVE); GLUCOSE, URINE (UA) NEGATIVE (NEGATIVE); KETONES,URINE NEGATIVE (NEGATIVE); LEUKOCYTE ESTERASE ,URINE NEGATIVE (NEGATIVE); NITRATE,URINE NEGATIVE (NEGATIVE); OCCULT BLOOD,URINE SMALL (NEGATIVE); PH,URINE 6.5 (5.0-8.0); PROTEIN,URINE NEGATIVE (NEGATIVE); UROBILINOGEN,URINE 0.2 mg/dL (<=1.0)
[2019-06-16 05:51] LABS: BACTERIA,URINE Few /HPF (None Seen); SQUAMOUS EPITHELIAL CELL,UR Rare /LPF (None Seen); WBC,URINE 0-2 /HPF (0-5)
[2019-06-16 05:52] VITALS: BP 121/76
== END 2019-06-16 06:16 | disposition home or self-care (01) ==
LOC: EMS 04:41
DX: R33.9 Retention of urine, unspecified (principal); F10.20 Alcohol dependence, uncomplicated; R10.9 Unspecified abdominal pain; J45.909 Unspecified asthma, uncomplicated; K21.9 Gastro-esophageal reflux disease without esophagitis; F19.10 Other psychoactive substance abuse, uncomplicated; F17.210 Nicotine dependence, cigarettes, uncomplicated; F11.90 Opioid use, unspecified, uncomplicated; Z79.899 Other long term (current) drug therapy
CPT/HCPCS: 51702